=== PATIENT | male | born 1960 | race African-American/Black ===

== ENCOUNTER 2023-11-12 04:26 | Day surgery (SDC) | payer OTHER ==
[2023-11-09 13:22] VITALS: BMI 22.8
[2023-11-12 14:19] VITALS: BP 133/77; PULSE 71; RESP 18; TEMP 98.3
== END 2023-11-12 11:30 | disposition home or self-care (01) ==
LOC: JASU-ENDO 04:26
PROVIDERS: ATTEND Internal Medicine Gastroenterology
PROC: 0DJD8ZZ Inspection of Lower Intestinal Tract, Via Natural or Artificial Opening Endoscopic (ICD-10-PCS; principal; 2023-11-12 10:00)
DX: Z12.11 Encounter for screening for malignant neoplasm of colon (principal); Z85.038 Personal history of other malignant neoplasm of large intestine; Z86.010 Personal history of colon polyps; Z98.0 Intestinal bypass and anastomosis status

== ENCOUNTER 2024-03-10 04:30 | Day surgery (SDC) | payer OTHER ==
[2024-03-07 12:16] VITALS: BMI 22.0
[2024-03-10 12:48] VITALS: TEMP 97.7
[2024-03-10 13:06] VITALS: RESP 18
[2024-03-10 13:39] VITALS: BP 126/84; PULSE 63
== END 2024-03-10 13:39 | disposition home or self-care (01) ==
LOC: JASU-ENDO 04:30
PROVIDERS: ATTEND Internal Medicine Gastroenterology
PROC: 0DB78ZX Excision of Stomach, Pylorus, Via Natural or Artificial Opening Endoscopic, Diagnostic (ICD-10-PCS; 2024-03-10)
PROC: 0DB68ZX Excision of Stomach, Via Natural or Artificial Opening Endoscopic, Diagnostic (ICD-10-PCS; principal; 2024-03-10 11:00)
DX: R63.4 Abnormal weight loss (principal)
CPT/HCPCS: 88305-TC; 88342-TC